=== PATIENT | female | born 1985 | race Caucasian/White ===

== ENCOUNTER 2021-07-23 18:36 | Emergency (ER) | payer SELFPAY ==
[~2021-07-23] VITALS: Ht 175.2 cm; Wt 113.4 kg
[2021-07-23] MEDS ORDERED: KETOROLAC10 MG PO (19:28)
[2021-07-23] MEDS ORDERED: AUGMENTIN 875-875 MG PO (19:28)
== END 2021-07-23 19:37 | disposition home or self-care (01) ==
LOC: ED 18:36
DX: K08.89 Other specified disorders of teeth and supporting structures (principal)